=== PATIENT | female | born 1970 | race Caucasian/White ===

== ENCOUNTER 2022-04-28 09:12 | Outpatient (CLI) | payer OTHER, SELFPAY ==
[2022-04-28 13:14] LABS: Hematocrit 41.3 % (33.0-51.0); Hemoglobin* 13.5 gm/dL (12.0-16.0); Mean Corpuscular HGB Conc 33 gm/dL (32-36); Mean Corpuscular Hemoglobin 28 pg (26-34); Mean Corpuscular Volume 86 fL (80-100); Platelet Count* 228 K/uL (140-440); White Blood Count* 5.12 K/uL (4.50-11.00)
[2022-04-28 13:37] LABS: Chloride* 106 mmol/L (96-114); Potassium* 5.1 mmol/L (3.6-5.1); Sodium* 139 mmol/L (135-149)
[2022-04-28 13:39] LABS: Cholesterol* 175 mg/dL (90-199); Creatinine* 0.8 mg/dL (0.5-1.5); Estimated Glomerular Filt Rate 89 ml/min
[2022-04-28 13:40] LABS: Blood Urea Nitrogen* 15 mg/dL (7-30); Calcium* 9.3 mg/dL (8.4-10.6); Carbon Dioxide* 28 mmol/L (20-32); Glucose* 100 mg/dL (60-115); HDL Cholesterol* 47 mg/dL (>=50); LDL Cholesterol Calculated 106 mg/dL (<100); Triglycerides* 112 mg/dL (40-149)
[2022-04-28 14:17] LABS: Slide Review Reflex No
--- OUTSIDE RECORDS SUMMARY | 2022-05-04 03:19 | XMS_ITS | Encounter Summary ---
:1970 Author Organization [facility] Address [address] [place] [address] Care Team Providers Name Role Phone Unavailable Primary Care Provider Unavailable Reason for Visit Reason Comments COVID Inquiry Encounter Details Date Type Department Care Team Description 06/29/2021 Clinical Communication Central Appointment ALEXSANDRA Calloway Office in [facility] [address] [place] [address] Social History Tobacco Use Types Packs/Day Years Used Date Smoking Tobacco: Former Sex Assigned at Date Recorded Not on file documented as of this encounter Miscellaneous Notes Telephone Encounter - Maryanne Hughes I - 06/29/2021 11:16 AM CDT What is the purpose of the call?: Requesting Testing Only Request Testing In the past 14 days are any of the following symptoms new to you and not related to an existing health condition?: New sore throat, New headache, New nausea, New change or loss of taste sensation Because of symptoms, transfer patient to: : [place] COVID Nurse Line (End Screening) Symptom Onset Date of symptom onset: 06/28/21 Testing Recommendation Endpoint Is testing recommended? : Transferred to nursing call line Plan: Endpoint recommendation: Transferred to Nursing/COVID Line/Care Team *Reminder if sending patient for testing in [facility] or [facility], route encounter to the correct testing pool. documented in this encounter Plan of Treatment Not on filedocumented as of this encounter Visit Diagnoses Not on filedocumented in this encounter
--- OUTSIDE RECORDS SUMMARY | 2022-05-04 03:19 | XMS_ITS | Encounter Summary ---
:1970 Author Organization [facility] Address [address] [place] [address] Care Team Providers Name Role Phone Unavailable Primary Care Provider Unavailable Encounter Details Date Type Department Care Team Description 10/28/2020 Admin Visit Department of Family Medicine, [address] [address] [facility] [phone] Social History Tobacco Use Types Packs/Day Years Used Date Smoking Tobacco: Former Sex Assigned at Date Recorded Not on file documented as of this encounter Last Filed Vital Signs Vital Sign Reading Time Taken Comments Blood Pressure - - Pulse - - Temperature - - Respiratory Rate - - Oxygen Saturation - - Inhaled Oxygen Concentration - - Weight - - Height 167.6 cm (5' 6) 10/28/2020 9:52 AM CHIEF ESTIMATOR Body Mass Index - - documented in this encounter Plan of Treatment Not on filedocumented as of this encounter Visit Diagnoses Not on filedocumented in this encounter Additional Health Concerns Infection Onset Date Last Indicated Resolved Time COVID19 Pending 10/28/2020 10/28/2020 10/28/2020 10:50 PM CHIEF ESTIMATOR documented as of this encounter
--- OUTSIDE RECORDS SUMMARY | 2022-05-04 03:19 | XMS_ITS | Encounter Summary ---
:1970 Author Organization [facility] Address [address] [place] [address] Care Team Providers Name Role Phone Unavailable Primary Care Provider Unavailable Reason for Visit Reason Onset Date Comments Testing For Upper Respiratory Virus Symptoms 10/28/2020 Encounter Details Date Type Department Care Team Description 10/28/2020 External Outreach Department of [facility] Joe Justice Contact With And Medicine, [facility] Dea Griffin (Suspected) Exposure Building, in [address] To COVID-19 ([place], [place] Dx) [address] [facility] [address] [place], [place] [phone] [address] (Work) [phone] Social History Tobacco Use Types Packs/Day Years Used Date Smoking Tobacco: Former Sex Assigned at Date Recorded Not on file documented as of this encounter Progress Notes Matty Joseph R.N. - 10/28/2020 9:00 AM CST Encounter created for symptomatic infectious disease screening with possible COVID, Influenza, RSV, and/or Group A Strep testing. LUTION EXPERT documented in this encounter Plan of Treatment Not on filedocumented as of this encounter Procedures Procedure Name Priority Date/Time Associated Diagnosis Comme nts SARS CORONAVIRUS-2 Routine 10/28/2020 9:39 AM Contact With And Results for this RNA, V RESOLUTION EXPERT (Suspected) Exposure procedu re are in To COVID-19 the results section. documented in this encounter Results SARS Coronavirus-2 RNA, V Symptomatic (10/28/2020 9:39 AM RESOLUTION EXPERT) [facility] Method Time Signature SARS-CoV-2 Swab, 10/28/2020 MKTO Specimen Nasopharynx 10:50 PM Source RESOLUTION EXPERT SARS CoV-2 Undetected Undetected 10/28/2020 MKTO RNA, TMA 10:50 PM RESOLUTION EXPERT Comment: SARS-CoV-2 RNA absent. This result does not rule out COVID-19 in the patient, as the sensitivity of the test depends o n the timing of the specimen collection and the quality of the specim en. Result should be correlated with patient's history and clinical presentat ion. ----ADDITIONAL INFORMATION---- This molecular amplification test was pe rformed using the Aptima SARS-CoV-2 assay ([employer] on the Urtaks tem under emergency use authorization (EUA) by the U.S. Food and Drug Administ ration. Fact sheets for this EUA assay can be fo und at the following links: For Healthcare Providers: https://www.fd a.gov/media/155436/download For Patients: https://www.fda.gov/media/ 482294/download Specimen Anatomical Collection Method Collection Time Receive d Time (Source) Location / / Volume Laterality Varies 10/28/2020 9:39 AM 3:35 (Nasopharynx) RESOLUTION EXPERT PM RESOLUTION EXPERT Joe Justice D.O. LAB MICROBIOLOGY - GENERAL O RDERABLES Performing Organization Address City/State/ZIP Code Phon e Number [facility]- [address] [place] [phone] [place] [address] [place] [address] System [address] documented in this encounter Visit Diagnoses Diagnosis Contact With And (Suspected) Exposure To COVID-19 - Primary documented in this encounter Additional Health Concerns Infection Onset Date Last Indicated Resolved Time COVID19 Pending 10/28/2020 10/28/2020 10/28/2020 10:50 PM RESOLUTION EXPERT documented as of this encounter
--- OUTSIDE RECORDS SUMMARY | 2022-05-04 03:20 | XMS_ITS | Encounter Summary ---
:1970 Author Organization [facility] Address [address] [place] [address] Care Team Providers Name Role Phone Unavailable Primary Care Provider Unavailable Encounter Details Date Type Department Care Team Description 01/21/2016 Hospital Encounter HX [facility] Adam Huizar M.D. [address] [place], [place] [phone] (Wo rk) Social History Tobacco Use Types Packs/Day Years Used Date Smoking Tobacco: Never Assessed Sex Assigned at Date Recorded Not on file documented as of this encounter Nursing Notes Meagan Sands L.PYrisNYris - 01/21/2016 2:49 PM CDT Nurse Only Documentation Nurse Only Documentation Entered On: 01/21/2016 14:49 CDT Performed On: 01/21/2016 14:49 CDT by MEAGAN SANDS LPN Nurse Only Documentation Nurse Only Visit Documentation : Random UDS for Kwik Trip collected, uneventful collection. MEAGAN SANDS LPN - 01/21/2016 14:49 CDT Source: [facility] POWERCHART Document Id: [id number] CDT!3 documented in this encounter Plan of Treatment Not on filedocumented as of this encounter Visit Diagnoses Not on filedocumented in this encounter
--- OUTSIDE RECORDS SUMMARY | 2022-05-04 03:20 | XMS_ITS | Encounter Summary ---
:1970 Author Organization [facility] Address [address] [place] [address] Care Team Providers Name Role Phone Unavailable Primary Care Provider Unavailable Reason for Visit Reason Comments COVID Inquiry Encounter Details Date Type Department Care Team Description 10/28/2020 Clinical Communication Department of Family No Contact , Pcp COVID Inquiry Medicine, [facility], in [place], [place] [address] [place] [phone] Social History Tobacco Use Types Packs/Day Years Used Date Smoking Tobacco: Former Sex Assigned at Date Recorded Not on file documented as of this encounter Miscellaneous Notes Telephone Encounter - Bree Bacon - 10/28/2020 8:48 AM CST What is the purpose of the call?: Requesting Testing Only Request Testing In the past 14 days are any of the following symptoms new to you and not related to an existing health condition?: New sore throat, New nausea, New myalgias (muscle aches), New chills, Fever*, New change or loss of taste sensation Because of symptoms, transfer patient to: : [place] [facility] Nurse Line (End Screening) Symptom Onset Date of symptom onset: 10/28/20 Testing Recommendation Endpoint Is testing recommended? : Transferred to nursing call line Plan: Endpoint recommendation: Transferred to Nursing/COVID Line/Care Team *Reminder if sending patient for testing in [facility] or [facility], route encounter to the correct testing pool. KEN SEXER documented in this encounter Plan of Treatment Not on filedocumented as of this encounter Visit Diagnoses Not on filedocumented in this encounter
--- OUTSIDE RECORDS SUMMARY | 2022-05-04 03:20 | XMS_ITS | Encounter Summary ---
:1970 Author Organization [facility] Address [address] [place] [address] Care Team Providers Name Role Phone Unavailable Primary Care Provider Unavailable Encounter Details Date Type Department Care Team Description 08/28/2015 Hospital Encounter [facility]X [facility] OBGYHolger Sequeira M.D. Social History Tobacco Use Types Packs/Day Years Used Date Smoking Tobacco: Never Assessed Sex Assigned at Date Recorded Not on file documented as of this encounter Last Filed Vital Signs Vital Sign Reading Time Taken Comments Blood Pressure 140/82 08/28/2015 10:30 AM ACCESS REP Pulse - - Temperature - - Respiratory Rate - - Oxygen Saturation - - Inhaled Oxygen Concentration - - Weight 108 kg (237 lb 7 oz) 08/28/2015 10:30 AM ACCESS REP Height - - Body Mass Index - - documented in this encounter Progress Notes Racquel Lynn M.D. - 08/28/2015 10:13 AM CST [id number] CHIEF COMPLAINT/REASON FOR VISIT Frequency and dysuria. Mrs. Jackman is a pleasant 45-year-old nulliparous female who seems to be perimenopausal. She has a Mirena IUD. The patient has symptoms of a urinary tract infection. No CVA tenderness or fever. Menopausal status quiered; will order FSH and serum estrogen levels. PHYSICAL EXAMINATION Abdomen is soft. External genitalia is normal. The urethra is cleansed with Betadine and using a straight catheter, sterile urine is obtained for urinalysis, Gram stain and culture if Gram stain positive. Examination the vagina reveals a mobile uterus without adnexal masses. The patient has a Mirena IUD in place. IMPRESSION/REPORT/PLAN Awaiting the urine culture, will initiate Cipro 500 mg 2 times a day for 5 days. #1 Urinary tract infection. #2 PLAN: Cipro 500 mg 2 times a day for 5 days. Rayray Lynn M.D./magdy Electronically Signed By: Racquel LYNN MD On: 09/02/2015 08:09 AM Modified by and Electronically Signed by: Racquel LYNN MD On: 09/02/2015 08:09 AM Source: [facility] MHSDOLBEYNONRADSYS Document Id: [id number] Addendum by Racquel LYNN MD on 02 September 2015 10:27 ACCESS REP Urine culture positive for E. coli. which is sensitive to Cipro. Called patient and left message tocontact us is symptoms not resolved. CRS Modified by and Electronically Signed by: Racquel LYNN MD On: 09/02/2015 10:27 AM Source: [facility] POWERCHART Document Id: [id number] SS REP documented in this encounter Miscellaneous Notes Miscellaneous - Subha Lugo L.PYrisNYris - 08/28/2015 10:30 AM CST Adult Corrections Nurse Intake/History Adult Corrections Nurse Intake/History Entered On: 08/28/2015 10:32 ACCESS REP Performed On: 08/28/2015 10:30 ACCESS REP by SUBHA LUGO LPN Intake Chief Complaint : Bladder infection and wants consult about menopause. LMP Date : 08/26/15 Systolic Blood Pressure : 140 mmHg Diastolic Blood Pressure : 82 mmHg NIBP Mean : 101 mmHg BP Location : Left upper extremity Blood Pressure Cuff Size : Large Actual Weight : 107.7 kg(Converted to: 237 lb 7 oz) Dosing Weight Clinic : 107.7 kg SUBHA LUGO LPN - 08/28/2015 10:30 ACCESS REP General Info Languages : Danish Is Patient Female and 13-50 no hysterectomy : Yes Status : Patient denies Are you ? : No SUBHA LUGO LPN - 08/28/2015 10:30 ACCESS REP Subjective Pain Symptoms : No SUBHA LUGO LPN - 08/28/2015 10:30 ACCESS REP Dependent Habits Smoking Status : Former smoker Tobacco 2A : Yes Tobacco Use/Currently Using : No Tobacco Use/Last 30 Days : No Tobacco Use/Last 12 months : No Tobacco Last Use/Month : June Tobacco Last Use/Year : 1999 Alcohol Use : No SUBHA LUGO LPN - 08/28/2015 10:30 ACCESS REP Source: [facility] POWERCHART Document Id: [id number] ACCESS REP!27 SS REP documented in this encounter Plan of Treatment Not on filedocumented as of this encounter Procedures Procedure Name Priority Date/Time Associated Diagnosis Comme nts BACTERIAL CULTURE, Routine 08/28/2015 10:44 AM Re sults for this AEROBIC, URINE ACCESS REP procedure are in the results section. documented in this encounter Results (ABNORMAL) Bacterial Culture, Aerobic, Urine (08/28/2015 10:44 AM ACCESS REP) Analysis Performed At Patho logist Time Signature Bacterial EC <=2 POWERCHART Culture, (POSITIVE) Aerobic, Urine HXPre GNR POWERCHART Comment: 50,000 - 100,000 cfu/mL Gram Negative Ro ds Identification and susceptibility to fol low. HXFinal EC POWERCHART Comment: 50,000 - 100,000 cfu/mL Escheri gifty coli Specimen (Source) Anatomical Collection Method Collection Time Re ceived Time Location / / Volume Laterality Urine, Catheter 08/28/2015 10:44 AM ACCESS REP Organism Antibiotic Method Susceptibility Escherichia coli Amikacin SUSCEPTIBILITY, SANAZ <=2: Suscep tible (MCG/ML) Escherichia coli Ampicillin SUSCEPTIBILITY, SANAZ >=32: Resis tant (MCG/ML) Escherichia coli Ampicillin + Sulbactam SUSCEPTIBILITY, SANAZ >=32 : Resistant (MCG/ML) Escherichia coli Cefazolin SUSCEPTIBILITY, SANAZ 8: Suscepti ble (MCG/ML) Escherichia coli Cefepime SUSCEPTIBILITY, SANAZ <=1: Suscep tible (MCG/ML) Escherichia coli Cefoxitin SUSCEPTIBILITY, SANAZ <=4: Suscep tible (MCG/ML) Escherichia coli Ceftazidime SUSCEPTIBILITY, SANAZ <=1: Suscep tible (MCG/ML) Escherichia coli Ceftriaxone SUSCEPTIBILITY, SANAZ <=1: Suscep tible (MCG/ML) Escherichia coli Ciprofloxacin SUSCEPTIBILITY, SANAZ <=0.25: Andie ceptible (MCG/ML) Escherichia coli ESBL Confirmation Test SUSCEPTIBILITY, SANAZ Neg: Negative (MCG/ML) Escherichia coli Gentamicin SUSCEPTIBILITY, SANAZ <=1: Suscep tible (MCG/ML) Escherichia coli Levofloxacin SUSCEPTIBILITY, SANAZ <=0.12: Andie ceptible (MCG/ML) Escherichia coli Meropenem SUSCEPTIBILITY, SANAZ <=0.25: Andie ceptible (MCG/ML) Escherichia coli Nitrofurantoin SUSCEPTIBILITY, SANAZ 32: Suscept ible (MCG/ML) Escherichia coli Piperacillin + Tazobactam SUSCEPTIBILITY, SANAZ < =4: Susceptible (MCG/ML) Escherichia coli Trimethoprim + SUSCEPTIBILITY, SANAZ <=20: Susce ptible Sulfamethoxazole (MCG/ML) Escherichia coli Tobramycin SUSCEPTIBILITY, SANAZ <=1: Suscep tible (MCG/ML) Holger Lynn M.D. LAB MICROBIOLOGY - GENERAL O RDERABLES Performing Organization Address City/State/ZIP Code Phon e Number POWERCHART documented in this encounter Visit Diagnoses Not on filedocumented in this encounter
--- OUTSIDE RECORDS SUMMARY | 2022-05-04 03:20 | XMS_ITS | Encounter Summary ---
:1970 Author Organization [facility] Address [address] [place] [address] Care Team Providers Name Role Phone Unavailable Primary Care Provider Unavailable Encounter Details Date Type Department Care Team Description 04/04/2005 Hospital Encounter HX NO MAPPING Social History Tobacco Use Types Packs/Day Years Used Date Smoking Tobacco: Never Assessed Sex Assigned at Date Recorded Not on file documented as of this encounter Plan of Treatment Not on filedocumented as of this encounter Visit Diagnoses Not on filedocumented in this encounter
--- OUTSIDE RECORDS SUMMARY | 2022-05-04 03:20 | XMS_ITS | Encounter Summary ---
:1970 Author Organization [facility] Address [address] [place] [address] Care Team Providers Name Role Phone Unavailable Primary Care Provider Unavailable Encounter Details Date Type Department Care Team Description 03/21/2005 Hospital Encounter HX NO MAPPING Social History Tobacco Use Types Packs/Day Years Used Date Smoking Tobacco: Never Assessed Sex Assigned at Date Recorded Not on file documented as of this encounter Plan of Treatment Not on filedocumented as of this encounter Visit Diagnoses Not on filedocumented in this encounter
== END 2022-04-28 09:13 | disposition home or self-care (01) ==
PROVIDERS: PCP Family Medicine; Visit Provider Family Medicine
DX: Z00.00 Encounter for general adult medical examination without abnormal findings (principal); E66.9 Obesity, unspecified; N92.0 Excessive and frequent menstruation with regular cycle; Z13.6 Encounter for screening for cardiovascular disorders
CPT/HCPCS: 80048; 80061; 85027

== ENCOUNTER 2022-07-05 13:04 | Outpatient (CLI) | payer OTHER, SELFPAY ==
--- OUTSIDE RECORDS SUMMARY | 2022-07-05 13:06 | XMS_ITS | Encounter Summary ---
:1970 Author Organization [facility] Address [address] [place] [address] Care Team Providers Name Role Phone Unavailable Primary Care Provider Unavailable Reason for Visit Reason Comments COVID Inquiry Encounter Details Date Type Department Care Team Description 06/29/2021 Clinical Communication Central Appointment ALEXSANDRA Calloway Office in [facility] [address] [place] [address] Social History Tobacco Use Types Packs/Day Years [...] Because of symptoms, transfer patient to: : [place] COVID Nurse Line (End Screening) Symptom Onset Date of symptom onset: 06/28/21 Testing Recommendation Endpoint Is testing recommended? : Transferred to nursing call line Plan: Endpoint recommendation: Transferred to Nursing/COVID Line/Care Team *Reminder if sending patient for testing in [facility] or [facility], route encounter to the correct testing pool. documented in this encounter Plan of Treatment Not on filedocumented as of this encounter Visit Diagnoses Not on filedocumented in this encounter
--- OUTSIDE RECORDS SUMMARY | 2022-07-05 13:06 | XMS_ITS | Encounter Summary ---
:1970 Author Organization [facility] Address [address] [place] [address] Care Team Providers Name Role Phone Unavailable Primary Care Provider Unavailable Reason for Visit Reason Onset Date Comments Testing For Upper Respiratory Virus Symptoms 10/28/2020 Encounter Details Date Type Department Care Team Description 10/28/2020 External Outreach Department of [facility] Joe Justice Contact With And Medicine, [facility] Dea Griffin (Suspected) Exposure Building, in [address] To COVID-19 ([place], [place] Dx) [address] [facility] [address] [place], [place] [phone] [address] (Work) [phone] Social History Tobacco Use Types Packs/Day Years Used Date Smoking Tobacco: Former Sex Assigned at Date Recorded Not on file documented as of this encounter Progress Notes Matty Joseph R.N. - 10/28/2020 9:00 AM CST Encounter created for symptomatic infectious disease screening with possible COVID, Influenza, RSV, and/or Group A Strep testing. ACE CLEANER documented in this encounter Plan of Treatment Not on filedocumented as of this encounter Procedures Procedure Name Priority Date/Time Associated Diagnosis Comme nts SARS CORONAVIRUS-2 Routine 10/28/2020 9:39 AM Contact With And Results for this RNA, V FURNACE CLEANER (Suspected) Exposure procedu re are in To COVID-19 the results section. documented in this encounter Results SARS Coronavirus-2 RNA, V Symptomatic (10/28/2020 9:39 AM FURNACE CLEANER) [facility] Method Time Signature SARS-CoV-2 Swab, 10/28/2020 MKTO Specimen Nasopharynx 10:50 PM Source FURNACE CLEANER SARS CoV-2 Undetected Undetected 10/28/2020 MKTO RNA, TMA 10:50 PM FURNACE CLEANER Comment: SARS-CoV-2 RNA absent. This result does not rule out COVID-19 in the patient, as the sensitivity of the test depends o n the timing of the specimen collection and the quality of the specim en. Result should be correlated with patient's history and clinical presentat ion. ----ADDITIONAL INFORMATION---- This molecular amplification test was pe rformed using the Aptima SARS-CoV-2 assay ([employer] on the [employer] tem under emergency use authorization (EUA) by the U.S. Food and Drug Administ ration. Fact sheets for this EUA assay can be fo und at the following links: For Healthcare Providers: https://www.fd a.gov/media/885842/download For Patients: https://www.fda.gov/media/ 176284/download Specimen Anatomical Collection Method Collection Time Receive d Time (Source) Location / / Volume Laterality Varies 10/28/2020 9:39 AM 3:35 (Nasopharynx) FURNACE CLEANER PM FURNACE CLEANER Joe Justice D.O. LAB MICROBIOLOGY - GENERAL O RDERABLES Performing Organization Address City/State/ZIP Code Phon e Number [facility]- [address] [place] [phone] [place] [address] [place] [address] System [address] documented in this encounter Visit Diagnoses Diagnosis Contact With And (Suspected) Exposure To COVID-19 - Primary documented in this encounter Additional Health Concerns Infection Onset Date Last Indicated Resolved Time COVID19 Pending 10/28/2020 10/28/2020 10/28/2020 10:50 PM FURNACE CLEANER documented as of this encounter
--- OUTSIDE RECORDS SUMMARY | 2022-07-05 13:06 | XMS_ITS | Encounter Summary ---
:1970 Author Organization [facility] Address [address] [place] [address] Care Team Providers Name Role Phone Unavailable Primary Care Provider Unavailable Encounter Details Date Type Department Care Team Description 01/21/2016 Hospital Encounter HX [facility] Jamie Huizar M .D., M.P.H. [address] [place] [address] [phone] (Wo rk) Social History Tobacco Use Types Packs/Day Years Used Date Smoking Tobacco: Never Assessed Sex Assigned at Date Recorded Not on file documented as of this encounter Nursing Notes Meagan Sands L.P.N. - 01/21/2016 2:49 PM CDT Nurse Only Documentation Nurse Only Documentation Entered On: 01/21/2016 14:49 CDT Performed On: 01/21/2016 14:49 CDT by MEAGAN SANDS LPN Nurse Only Documentation Nurse Only Visit Documentation : Random UDS for Kwik Trip collected, uneventful collection. MEAGAN SANDS LPN - 01/21/2016 14:49 CDT Source: [facility] POWERCHART Document Id: [id number] CDT!3 documented in this encounter Plan of Treatment Not on filedocumented as of this encounter Visit Diagnoses Not on filedocumented in this encounter
--- OUTSIDE RECORDS SUMMARY | 2022-07-05 13:06 | XMS_ITS | Encounter Summary ---
:1970 Author Organization [facility] Address [address] [place] [address] Care Team Providers Name Role Phone Unavailable [...]
--- OUTSIDE RECORDS SUMMARY | 2022-07-05 13:06 | XMS_ITS | Clinical Summary ---
:1970 Author Organization [facility] Address [address] [place] [address] Care Team Providers Name Role Phone Unavailable Primary Care Provider Unavailable Source Comments Patient records contain information from all sites at [facility]. For routine questions regarding patient records, call [phone] during business hours, M-F 8:00 AM - 5:00 PM Central Time. Record requests for emergency care only can be directed to [phone] at any time.[facility] Immunizations Name Administration Dates Next Due Influenza, Unspecified 08/28/2015 Td Preservative Free (TENIVAC, DECAVAC) 03/21/2005 Social History Tobacco Use Types Packs/Day Years Used Date Smoking Tobacco: Former Sex Assigned at Date Recorded Not on file Last Filed Vital Signs Vital Sign Reading Time Taken Comments Blood Pressure 140/82 08/28/2015 10:30 AM CELLOPHANE WRAPPING EXAMINER Pulse 99 04/15/2015 6:29 PM CDT Temperature - - Respiratory Rate - - Oxygen Saturation - - Inhaled Oxygen Concentration - - Weight 108 kg (237 lb 7 oz) 08/28/2015 10:30 AM CELLOPHANE WRAPPING EXAMINER Height 167.6 cm (5' 6) 10/28/2020 9:52 AM CELLOPHANE WRAPPING EXAMINER Body Mass Index - - Plan of Treatment Health Maintenance Due Date Last Done Comments CT Colonography 1971 Cervical Cancer Screening 1971 Cologuard 1971 Colonoscopy 1971 Colorectal Cancer Screening 1971 FIT 1971 Fasting Glucose for 1971 Diabetes Screening HIV Screening 1971 Hepatitis B Vaccines (1 of 1971 3 - 3-dose series) Hepatitis C Screening 1971 Lipid (Cholesterol) 1971 Screening Mammogram 1971 Zoster Vaccines (1 of 2) 2021 Depression Screening 09/25/2021 (Annual PHQ-2) COVID-19 Vaccine (4 - 10/11/2021 08/16/2021, 02/12/2021, Booster for Moderna series) 01/15/2021 Influenza Vaccine (#1) 2022 08/16/2021, 08/28/2015, 08/28/2015, Additional history exists DTaP,Tdap,and Td Vaccines 04/28/2032 04/28/2022, 05/21/2012 , (3 - Td or Tdap) 03/21/2005 Pneumococcal vaccine (0-64 Aged Out No lo nger eligible years) based on patient 's age to complete this topic Insurance Payer Benefit Plan / Subscriber ID Effective Phone Address T e Group Dates ALLEGIANCE ALLEGIANCE [id number] 2020-Josefina [phone] [address] Indemnity [address] [place] [address]
--- OUTSIDE RECORDS SUMMARY | 2022-07-05 13:06 | XMS_ITS | Encounter Summary ---
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
--- OUTSIDE RECORDS SUMMARY | 2022-07-05 13:06 | XMS_ITS | Encounter Summary ---
:1970 Author Organization [facility] Address [address] [place] [address] Care Team Providers Name Role Phone Unavailable Primary Care Provider Unavailable Encounter Details Date Type Department Care Team Description 04/15/2015 Hospital Encounter [facility]X [facility] Shaylee Marquez M.D. [address] [place] [address] [place] [phone] (Wo rk) Social History Tobacco Use Types Packs/Day Years Used Date Smoking Tobacco: Never Assessed Sex Assigned at Date Recorded Not on file documented as of this encounter Last Filed Vital Signs Vital Sign Reading Time Taken Comments Blood Pressure 128/78 04/15/2015 6:29 PM CDT Pulse 99 04/15/2015 6:29 PM CDT Temperature - - Respiratory Rate - - Oxygen Saturation - - Inhaled Oxygen Concentration - - Weight 108 kg (237 lb 10.5 oz) 04/15/2015 6:29 PM CDT Height - - Body Mass Index - - documented in this encounter Progress Notes Elizabeth Marquez M.D. - 04/15/2015 6:05 PM CDT [id number] HISTORY OF PRESENT ILLNESS This is a 45-year-old female here today with a 5-day history of fever, shortness breath, intermittently productive cough, some slight wheezing. No nausea or vomiting. Yesterday patient did see sathish Paul; however it was suggested that it could be viral and has tried ibuprofen, acetaminophensince that time, without improvement. PHYSICAL EXAMINATION VITAL SIGNS: Temp 39.4, blood pressure 128/78. Pulse ox 93% on room air. GENERAL: Alert and oriented x3. No acute distress. HEENT: Normocephalic, atraumatic. EOMI. PERRLA. Sclerae anicteric. Conjunctivae injected. Tympanic membranes translucent without erythema or fluid or bulging bilaterally. Nares patent with nonbloody turbinates bilaterally. Oropharynx with mildly erythematous posterior pharynx, without any swelling or uvular deviation. Minimal anterior chain cervical lymphadenopathy, equal bilaterally without any tenderness. CARDIOVASCULAR: Regular rate and rhythm. PULMONARY: Difficult exam. Patient unable to take a deep breath without cough, some slight crackles,but again, very difficult exam. No wheezes apparent. ABDOMEN: Soft, nontender. EXTREMITIES: Appear warm and well perfused. DIAGNOSTICS 1. Rapid strep negative. 2. Formal read not yet available. Appears to have some consolidation in the right upper lobe, and left lower costovertebral angle is not well defined. IMPRESSION/REPORT/PLAN Pneumonia. I did provide patient with a 10-day course of Augmentin. Reviewed acetaminophen dosing. He can return for further evaluation if worsening. Patient understands and agrees with the above plan. Elizabeth Marquez M.D./magdy Electronically Signed By: ELIZABETH MARQUEZ MD On: 04/23/2015 09:45 PM Modified by and Electronically Signed by: ELIZABETH MARQUEZ MD On: 04/23/2015 09:45 PM Source: [facility] MHSDOLBEYNONRADSYS Document Id: [id number] documented in this encounter Miscellaneous Notes Miscellaneous - Elizabeth Marquez M.D. - 04/15/2015 7:13 PM CDT Work Excuse 15 April 2015 SAMINA JACKMAN [id number] [facility] [address] Dear SAMINA JACKMAN, You were examined in my office on 04/15/2015 and are not to return to work until 04/20/2015 Sincerely, ELIZABETH MARQUEZ [address] [place] [address], [place] [address] Electronic Signature Electronically Signed By: ELIZABETH MARQUEZ MD On: 15 April 2015 This document has images extracted. Source: [facility] POWERCHART Document Id: [id number] Miscellaneous - Conversion, Historical Provider Ser - 04/15/2015 6:29 PM CDT Adult Resort Host Intake/History Adult Resort Host Intake/History Entered On: 04/15/2015 18:32 CDT Performed On: 04/15/2015 18:29 CDT by SHAUN LAUREANO MA Student Intake Chief Complaint : Shortness of breath, chills, sore throat, cough x4days SHERICE CHATTERJEE - 04/15/2015 19:47 CDT Temperature Core : 39.4 DegC(Converted to: 102.9 DegF) (HI) Peripheral Pulse Rate : 99 /min Systolic Blood Pressure : 128 mmHg Diastolic Blood Pressure : 78 mmHg NIBP Mean : 95 mmHg BP Location : Right upper extremity Blood Pressure Cuff Size : Regular SpO2 : 93 % (LOW) Actual Weight : 107.8 kg(Converted to: 237 lb 11 oz) Weight Source : Standing scale Dosing Weight Clinic : 107.8 kg SHAUN LAUREANO MA Student - 04/15/2015 18:29 CDT General Info Information Given By : Patient Preferred Communication Mode : Verbal Languages : Luxembourgish Is Patient Female and 13-50 no hysterectomy : Yes Status : Patient denies Are you ? : No SHAUN LAUREANO MA Student - 04/15/2015 18:29 CDT Subjective Pain Symptoms : No SHAUN LAUREANO MA Student - 04/15/2015 18:29 CDT Dependent Habits Tobacco Use/Currently Using : No Smoking Status : Never smoker SHAUN LAUREANO MA Student - 04/15/2015 18:29 CDT Source: [facility] ShuttlerockCHART Document Id: [id number] CDT!26 documented in this encounter Plan of Treatment Not on filedocumented as of this encounter Procedures Procedure Name Priority Date/Time Associated Diagnosis Comme nts DX CHEST AP OR PA Routine 04/15/2015 6:40 PM Resu lts for this AND LATERAL 2 VIEWS CDT procedur e are in the results section. RAPID STREP A Routine 04/15/2015 6:32 PM Results for this SCREEN CDT procedure are i n the results section. documented in this encounter Results DX Chest Anterior Posterior or Posterior Anterior and Lateral 2 Views (04/15/2015 6:40 PM CDT) Anatomical Region Laterality Modality Chest N/A Radiographic Imaging Specimen (Source) Anatomical Collection Method Collection Time Re ceived Time Location / / Volume Laterality 04/15/2015 6:40 PM CDT Addenda Addendum by Provider, Shilpa Cobos 04/15/2015 6:40 PM CDT RAD^^^LASF XR CHEST PA AND LAT 04/15/2015 18:40:18 Impressions 04/15/2015 6:54 PM CDT ??Findings suggest multifocal pneumonia. Followup to ?? resolution is recommended. Findings: Airspace disease with consolid ation in the right upper lobe and ?? left lower lobe. Additional patchy airsp reid opacities in the right lower ?? lobe. Small left pleural effusion. Andria l heart size. Remainder ?? unremarkable. Transcribed by: ?? on Apr 15 2015 ??7:16 P ?? Read by: ? GEORGES CHAN ??on Mar 262014 ??7:16P ?? Signed by: GEORGES CHAN on Apr 15 2015 ?? 7:16P ? Narrative 04/15/2015 6:54 PM CDT INDICATION: COUGH, FEVER; ACCESSION No: ? [id number] DATE OF EXAM: Apr 15 2015 ??18:54 EXAM CODE and DESCRIPTION: FOD ?? 1002 - ?? XR CHEST PA AND LAT RESULT: PA and lateral chest with dual e nergy technique Comparison: None ?? Procedure Note Georges Chan M.D. / ProviderBrennon M.D. - 02/01/2017 INDICATION: COUGH, FEVER; ACCESSION No: [id number] DATE OF EXAM: Apr 15 2015 18:54 EXAM CODE and DESCRIPTION: FOD 1002 - XR CHEST PA AND LAT RESULT: PA and lateral chest with dual e nergy technique Comparison: None IMPRESSION: Findings suggest multifocal pneumonia. Followup to resolution is recommended. Findings: Airspace disease with consolid ation in the right upper lobe and left lower lobe. Additional patchy airsp reid opacities in the right lower lobe. Small left pleural effusion. Andria l heart size. Remainder unremarkable. Transcribed by: on Apr 15 2015 7:16P Read by: GEORGES CHAN on Apr 15 2015 7:16 P Signed by: GEORGES CHAN on Apr 15 2015 7: 16P Georges Chan M.D. IMG DIAGNOSTIC IMAGING PROCE DURES Rapid Strep A Screen (04/15/2015 6:32 PM CDT) [facility] Method Time Signature HXSPECIMAN THROAT SWAB MISYS DESCRIPTION [place] HXStrep A SCREENING MISYS Screen Rapid TEST NEGATIVE [place] CULTURE REPORT FINAL MISYS STATUS 04/16/2015 [place] Bacterial NO GROWTH OF MISYS Culture, STREP GROUP A [place] Aerobic Bacterial PERFORMED AT [facility], [address] [place] [id number] Specimen (Source) Anatomical Collection Method Collection Time Re ceived Time Location / / Volume Laterality Throat 04/15/2015 6:32 PM CDT Elizabeth Marquez M.D. LAB MICROBIOLOGY - GENERAL O RDERABLES Performing Organization Address City/State/ZIP Code Phon e Number MISYS [place] [address] [place] [address] [place] [place] documented in this encounter Visit Diagnoses Not on filedocumented in this encounter
--- OUTSIDE RECORDS SUMMARY | 2022-07-05 13:06 | XMS_ITS | Encounter Summary ---
:1970 Author Organization [facility] Address [address] [place] [address] Care Team Providers Name Role Phone Unavailable Primary Care Provider Unavailable Encounter Details Date Type Department Care Team Description 08/28/2015 Hospital Encounter [facility]X [facility] OBGYHolger Sequeira M.D. 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 - 08/28/2015 10:13 AM CST [id number] CHIEF COMPLAINT/REASON FOR VISIT Frequency and dysuria. [...] LYNN MD On: 09/02/2015 08:09 AM Source: [facility] MHSDOLBEYNONRADSYS Document Id: [id number] Addendum by Racquel LYNN MD on 02 September 2015 10:27 PEN OR PENCIL ASSEMBLY MACHINE OPERATOR Urine culture positive for E. coli. which is sensitive to Cipro. Called patient and left message tocontact us is symptoms not resolved. CRS Modified by and Electronically Signed by: Racquel LYNN MD On: 09/02/2015 10:27 AM Source: 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 : No SUBHA LUGO LPN - 08/28/2015 10:30 PEN OR PENCIL ASSEMBLY MACHINE OPERATOR Subjective Pain Symptoms : No SUBHA LUGO LPN - 08/28/2015 10:30 PEN OR PENCIL ASSEMBLY MACHINE OPERATOR Dependent Habits Smoking Status : Former smoker Tobacco 2A : Yes Tobacco Use/Currently Using : No Tobacco Use/Last 30 Days : No Tobacco Use/Last 12 months : No Tobacco Last Use/Month : June Tobacco Last Use/Year : 1999 Alcohol Use : No SUBHA LUGO LPN - 08/28/2015 10:30 PEN OR PENCIL ASSEMBLY MACHINE OPERATOR Source: [facility] POWERCHART Document Id: [id number] PEN OR PENCIL ASSEMBLY MACHINE OPERATOR!27 OR PENCIL ASSEMBLY MACHINE OPERATOR documented in this encounter Plan of Treatment Not on filedocumented as of this encounter Procedures Procedure Name Priority Date/Time Associated Diagnosis Comme nts BACTERIAL CULTURE, Routine 08/28/2015 10:44 AM Re sults for this AEROBIC, URINE PEN OR PENCIL ASSEMBLY MACHINE OPERATOR procedure are in the results section. documented in this encounter Results (ABNORMAL) Bacterial Culture, Aerobic, Urine (08/28/2015 10:44 AM PEN OR PENCIL ASSEMBLY MACHINE OPERATOR) Analysis Performed At Patho logist Time Signature [...] Volume Laterality Urine, Catheter 08/28/2015 10:44 AM PEN OR PENCIL ASSEMBLY MACHINE OPERATOR Organism Antibiotic Method Susceptibility Escherichia coli Amikacin [...]
--- OUTSIDE RECORDS SUMMARY | 2022-07-05 13:06 | XMS_ITS | Encounter Summary ---
:1970 Author Organization [facility] Address [address] [place] [address] Care Team Providers Name Role Phone Unavailable Primary Care Provider Unavailable Reason for Visit Reason Comments COVID Inquiry Encounter Details Date Type Department Care Team Description 10/28/2020 Clinical Communication Department of Family No Contact , Pcp COVID Inquiry Medicine, [facility], in [place], [place] [address] [place] [id number] Social History Tobacco Use Types Packs/Day Years [...] Because of symptoms, transfer patient to: : [place] COVCT Nurse Line (End Screening) Symptom Onset Date of symptom onset: 10/28/20 Testing Recommendation Endpoint Is testing recommended? : Transferred to nursing call line Plan: Endpoint recommendation: Transferred to Nursing/COVID Line/Care Team *Reminder if sending patient for testing in [facility] or [facility], route encounter to the correct testing pool. TOR/QUALITY documented in this encounter Plan of Treatment Not on filedocumented as of this encounter Visit Diagnoses Not on filedocumented in this encounter
--- OUTSIDE RECORDS SUMMARY | 2022-07-05 13:06 | XMS_ITS | Encounter Summary ---
:1970 Author Organization [facility] Address [address] [place] [address] Care Team Providers Name Role Phone Unavailable Primary Care Provider Unavailable Reason for Visit Reason Comments [facility] Nurse Line Encounter Details Date Type Department Care Team Description 06/29/2021 Clinical Communication Division of [facility] Ma Nurse Jeannette [facility] Internal Steffen Falcon [facility] [phone] [facility] ([place], [place] [address] [place] [address] Social History Tobacco Use Types Packs/Day Years Used Date Smoking Tobacco: Former Sex Assigned at Date Recorded Not on file documented as of this encounter Miscellaneous Notes Telephone Encounter - Marilou Ma R.N. - 06/29/2021 11:18 AM CDT COVID-19 Nurse Line Screening ASSESSMENT Region Select appropriate region: : [place] Age Pathway Select approprite pathway: : Adult Have you had close contact* with a person who has a LABORATORY CONFIRMED case of COVID-19 in the past 14 days?: No (Continue Screening) In the last 48 hours, have you had a fever* OR symptoms that are unrelated to a preexisting illness?: New sore throat, New nausea, Fever Have you received a COVID-19 vaccine in the last 72 hours? : Yes received vaccine but patient also has additional COVID symptoms (Continue Screening)* Do you have any of the following urgent symptoms?: No urgent symptoms noted (Continue Screening) Have you tested positive for COVID-19 in the last 45 days?: No (Continue Screening) Are ALL the following criteria met: age between 18 to 75 yrs, main symptom is a sore throat with duration of 24 hrs to 7 days, onset of sore throat not associated with new upper respiratory symptoms*? : No, COVID testing is recommended (End Screening) Symptom Onset Date of symptom onset: 06/28/21 Testing Recommendation Endpoint Is testing recommended? : Recommended to test PLAN Endpoint recommendation: Symptomatic testing indicated, advised to be swabbed for COVID-19 Only , sent to [facility] located at [address] [place] [address] ([facility]). An appointment is required for testing, please call [phone] Monday-Monday 7am to 6pm and Monday & Monday 9am to 4pm to schedule an appointment. Testing hours are 8am - 4:30pm daily. You can also schedule via your Patient Online Services account. and Please avoid using public transportation per CDC recommendation. If you donot have personal transportation please self-quarantine until a personal transportation option is available. Standard Care Points -Get a COVID -19 vaccine as soon as you can if not fully vaccinated. -Wash hands frequently with soap and water, use hand buggy loader if soap and water aren't available. -Wear a mask over your nose and mouth to help protect yourself and others if not fully vaccinated and having no symptoms -Stay 6 feet between yourself and others who don't live with you. -Avoid crowds and poorly ventilated indoor spaces. -Seek emergent care if any of the following occur Trouble breathing Bluish lips or face Persistent pain or pressure in the chest New confusion or inability to rouse. -Notify your regular care provider of any new or worsening symptoms. Symptomatic Carepoints: Stay home and separate yourself from others and stay in a specific sick room if able. Avoid sharing personal or household items. Rest. Hydrate. Take Acetaminophen/Ibuprofen asneeded to control fever and muscles aches. Use over the counter medications as needed for other symptoms. If you have received a negative COVID-19 test result and continue to have new or worsening symptoms after 72 hours please call the COVID Nurse Line to assess if you need repeat testing or reach out to your Primary Care Provider for guidance. Education: Patient/caregiver able to teach back Patient agreeable to plan of care: Yes The following references were used: [facility] novel coronavirus (COVID- 19) resources CDC web site https://www.cdc.gov/coronavirus/2019-ncov/your-health/index.html Nursing judgement documented in this encounter Plan of Treatment Not on filedocumented as of this encounter Visit Diagnoses Not on filedocumented in this encounter
--- OUTSIDE RECORDS SUMMARY | 2022-07-05 13:06 | XMS_ITS | Encounter Summary ---
:1970 Author Organization [facility] Address [address] [place] [address] Care Team Providers Name Role Phone Unavailable [...]
--- NOTE | 2022-07-05 13:20 | CRLHL7_ITS ---
For Patients: As a result of the Cures Act, medical imaging exams and procedure reports are released immediately into your electronic medical record. You may view this report before your referring provider. If you have questions, please contact your health care provider. BILATERAL SCREENING MAMMOGRAM WITH COMPUTER-AIDED DETECTION TECHNIQUE: CC and MLO views were obtained. These mammographic images have been obtained using full-field digital technique. These mammographic images were interpreted with the benefit of computer-aided detection. COMPARISON FILM: 05/25/21, 01/29/19, 11/14/17 outside. FINDINGS: There are scattered areas of fibroglandular density IMPRESSION: There is no radiographic evidence for malignancy. ASSESSMENT: BI-RADS Category 1: Negative RECOMMENDATION: Routine screening mammogram in 1 year. A lay language report of this examination will be provided to the patient. Bradford Juarez M.D. Diagnostic Radiologist [email or web address] JARAD/sven / be/Dictated by: Bradford Juarez MD @ 07/06/2022 11:49:00 AM MICHELLE/Dictated by: Bradford Juarez MD @ 07/06/2022 11:49:00 AM (Electronically Signed)
== END 2022-07-05 13:05 | disposition home or self-care (01) ==
PROVIDERS: PCP Family Medicine; Visit Provider Family Medicine
DX: Z12.31 Encounter for screening mammogram for malignant neoplasm of breast (principal)
CPT/HCPCS: 77067

== ENCOUNTER 2023-05-01 15:43 | Outpatient (CLI) | payer OTHER, SELFPAY | END 2023-05-01 15:44 | disposition home or self-care (01) | PROVIDERS: PCP Family Medicine; Visit Provider Family Medicine | DX: Z00.00 Encounter for general adult medical examination without abnormal findings (principal); E66.9 Obesity, unspecified; Z13.6 Encounter for screening for cardiovascular disorders | CPT/HCPCS: 80048; 80061 ==

== ENCOUNTER 2024-01-29 14:37 | Outpatient (CLI) | payer OTHER, SELFPAY ==
--- OUTSIDE RECORDS SUMMARY | 2024-01-29 14:41 | XMS_ITS | Clinical Summary ---
Author Name Unknown Organization [facility] Address [place], [place] [address] Care Team Providers Care Test Inspection Engineer Name Role Phone Nonstaff, Doctor Primary Care Provider Unavailab le Allergies No known active allergies Medications Medication Sig Dispensed Refills Start Date End Date Status multivitamin (MVI) tablet Take 1 tablet by mouth once daily. Active oxyCODONE (ROXICODONE) 5 mg/5 mL solutionIndications:Chr onic tonsillitis Take 5-10 mL by mouth every 4 hours if needed for Pain 500 mL 06/28/2018 Active Social History Tobacco Use Types Packs/Day Years Used Date Smoking Tobacco: Former Cigarettes Q uit: 06/26/1999 Smokeless Tobacco: Never Alcohol Use Standard Drinks/Week Comments Yes 0 (1 standard drink = 0.6 oz pur e alcohol) once in awhile Sex and Gender Information Value Date Recorded Sex Assigned at Not on file Gender Identity Not on file Sexual Orientation Not on file Obstetrics History Last Filed Vital Signs Vital Sign Reading Time Taken Comments Blood Pressure 102/49 06/28/2018 3:00 PM CDT Pulse 68 06/28/2018 3:00 PM CDT Temperature 36.4 ??C (97.6 ??F) 06/28/2018 3:00 PM CD T Respiratory Rate 16 06/28/2018 3:00 PM CDT Oxygen Saturation 96% 06/28/2018 3:00 PM CDT Inhaled Oxygen Concentration - - Weight 110.2 kg (242 lb 15.2 oz) 2017 11:42 AM CDT Height 167.6 cm (5' 6) 06/27/2018 3:04 PM CDT Body Mass Index 39.21 06/27/2018 3:04 PM CDT Plan of Treatment Not on file Advance Directives * Full Code (Latest Code Status on File) Date Activated Date Inactivated Comments 06/28/2018 11:05 AM 06/28/2018 5:22 PM Care Teams Test Inspection Engineer Relationship Specialty Start Date End Date Nonstaff, Doctor NON STAFF DOCTOR PCP - General 06/26/18
--- NOTE | 2024-01-29 15:00 | MM_ITS ---
Patient: KACEY COPELAND Facility:?[facility] Patient ID:?[id number] Site Patient ID:?[id number]. Site :?[id number] Study:?XRay-Breast Bilateral 3D W/CAD-01/29/2024 3:05:49 PM Ordering Physician:Ana Final Report: BILATERAL SCREENING MAMMOGRAM WITH COMPUTER-AIDED DETECTION AND TOMOSYNTHESIS TECHNIQUE: CC and MLO views were obtained. These mammographic images have been obtained using full-field digital technique. These mammographic images were interpreted with the benefit of computer-aided detection. Breast Tomosynthesis was used in this interpretation. COMPARISON FILM: 07/05/22, 05/25/21, 01/29/19. FINDINGS: There are areas of scattered fibroglandular density. IMPRESSION: There is no radiographic evidence for malignancy. ASSESSMENT: BI-RADS Category 1: Negative RECOMMENDATION: Routine screening mammogram in 1 year. A lay language report of this examination will be provided to the patient. Bradford Juarez M.D. Diagnostic Radiologist [email or web address] Transcribed: 12:47 p.mYris [email or web address]/Dictated by: Bradford Juarez MD @ 01/30/2024 9:45:00 AM Signed by:?Bradford Juarez MD @01/30/2024 1:51:12 PM (Electronic Signature)
== END 2024-01-29 14:38 | disposition home or self-care (01) ==
LOC: MAMMO 14:37
PROVIDERS: PCP Family Medicine; Visit Provider Family Medicine
DX: Z12.31 Encounter for screening mammogram for malignant neoplasm of breast (principal)
CPT/HCPCS: 77063; 77067

== ENCOUNTER 2024-06-04 15:39 | Outpatient (CLI) | payer OTHER, SELFPAY ==
--- OUTSIDE RECORDS SUMMARY | 2024-06-04 15:42 | XMS_ITS | Clinical Summary ---
Author Organization [facility] Address [place], [place] [address] Care Team Providers Care Paper Cutting Machine Operator Name Role Phone Nonstaff, Doctor Primary Care [...] 11:05 AM 06/28/2018 5:22 PM Care Teams Paper Cutting Machine Operator Relationship Specialty Start Date End Date Nonstaff, Doctor NON STAFF DOCTOR PCP - General 06/26/18
== END 2024-06-04 15:40 | disposition home or self-care (01) ==
PROVIDERS: PCP Family Medicine; Visit Provider Family Medicine
DX: R63.5 Abnormal weight gain (principal); Z13.220 Encounter for screening for lipoid disorders; Z13.29 Encounter for screening for other suspected endocrine disorder
CPT/HCPCS: 80048; 80061; 84443

== ENCOUNTER 2024-11-22 09:45 | Outpatient (CLI) | payer OTHER, SELFPAY | END 2024-11-22 09:46 | disposition home or self-care (01) | LOC: NFLDREF 11-25 01:34 | PROVIDERS: PCP Family Medicine; Referring Provider Family Medicine; Visit Provider Family Medicine | DX: R30.0 Dysuria (principal); N39.0 Urinary tract infection, site not specified | CPT/HCPCS: 87086 ==

== ENCOUNTER 2025-06-11 14:46 | Outpatient (CLI) | payer OTHER, SELFPAY ==
--- NOTE | 2025-06-11 15:00 | CRLHL7_ITS ---
For Patients: As a result of the Century Cures Act, medical imaging exams and procedure reports are released immediately into your electronic medical record. You may view this report before your referring provider. If you have questions, please contact your health care provider. INDICATION: BILATERAL SCREENING MAMMOGRAM, ASYMPTOMATIC 55 Y/O FEMALE COMPARISON: 01/29/2024, 07/05/2022, 05/25/2021 TECHNIQUE: Digital mammogram in CC and MLO projections including computer-aided detection (CAD) and tomosynthesis. BREAST COMPOSITION: There are scattered areas of fibroglandular density. FINDINGS: No suspicious findings. ASSESSMENT: BI-RADS 1 Negative RECOMMENDATION: Annual screening mammogram. A lay language report of this examination will be provided to the patient. Dictated by: Bradford Juarez MD @ 06/12/2025 12:22:43 (Electronically Signed)
== END 2025-06-11 14:47 | disposition home or self-care (01) ==
LOC: MAMMO 14:47
PROVIDERS: PCP Family Medicine; Visit Provider Family Medicine
DX: Z12.31 Encounter for screening mammogram for malignant neoplasm of breast (principal)
CPT/HCPCS: 77063; 77067